=== PATIENT | male | born 1980 | race Two or more races ===

== ENCOUNTER 2020-08-16 19:11 | Emergency (ER) | payer MEDICAID ==
[~2020-08-16] VITALS: Ht 175.3 cm; Wt 158.8 kg
--- NOTE | 2020-08-16 19:39 | NUR ---
DR. PARISI AT BEDSIDE FOR MSE.
--- NOTE | 2020-08-16 20:08 | NUR ---
Patient discharged to home in stable condition. Written and verbal after care instructions given. Patient verbalizes understanding of instructions. Stressed follow up or return to ER for worsening s/s. WOUND DRESSED WITH KERLIX PER MD ORDER.
[2020-08-16 20:09] VITALS: BP 147/92
[2020-08-16] MEDS ORDERED: LIDOCAINE HCL 2% 20 ML VIAL TP ONE (20:30)
== END 2020-08-16 20:21 | disposition home or self-care (01) ==
LOC: ER 19:14
DX: S61.411A Laceration without foreign body of right hand, initial encounter (principal); W26.0XXA Contact with knife, initial encounter; Y92.89 Other specified places as the place of occurrence of the external cause
CPT/HCPCS: 12002; 99282; J3490; A4663